=== PATIENT | female | born 1985 | race Caucasian/White ===

== ENCOUNTER 2019-03-10 13:07 | Emergency (ER) | payer SELFPAY ==
[~2019-03-10] VITALS: Ht 152.4 cm; Wt 61.4 kg
[2019-03-10 13:24] VITALS: BP 115/73; PULSE 70; RESP 18; Ht 152.4 cm; Wt 61.4 kg
[2019-03-10] MEDS ORDERED: KETOROLAC 30 MG INJ IM STA (14:20)
[2019-03-10] MEDS ORDERED: CEPH-443 PO (15:33)
[2019-03-10] MEDS ORDERED: IBUP-1542 PO (15:33)
--- NOTE | 2019-03-10 18:18 | ERD ---
ER Documentation Chief Complaint Chief Complaint left ankle pain s/p fall x6 days HPI 34-year-old woman complaining of left lateral ankle pain and redness after striking it against a ladder at home about a week ago. She has been able to ambulate without difficulty although she has exquisite pain when she touches the left lateral ankle. She denies inversion injury, no fevers or chills, no chest pain or shortness of breath, no domestic violence. ROS All systems reviewed and are negative except as per history of present illness. Medications Home Meds Active Scripts Cephalexin* (Keflex*) 500 Mg Capsule, 500 MG PO QID for 5 Days, CAP Prov:SHANNON WATERMAN MD 03/10/19 Ibuprofen* (Motrin*) 600 Mg Tab, 600 MG PO Q8 PRN for PAIN AND/OR INFLAMMATION, #30 TAB Prov:SHANNON WATERMAN MD 03/10/19 Allergies Allergies: Coded Allergies: No Known Allergy (Unverified , 03/10/19) PMhx/Soc Medical and Surgical Hx: pt denies Medical Hx, pt denies Surgical Hx History of Surgery: No Anesthesia Reaction: No Hx Neurological Disorder: No Hx Respiratory Disorders: No Hx Cardiac Disorders: No Hx Psychiatric Problems: No Hx Miscellaneous Medical Probl: No Hx Alcohol Use: No Hx Substance Use: No Hx Tobacco Use: No Smoking Status: Never smoker Physical Exam Vitals Vital Signs Date Temp Pulse Resp B/P (MAP) Pulse Ox O2 O2 Flow FiO2 Time Delivery Rate 03/10/19 97.9 70 18 115/73 99 13:24 (87) Physical Exam Const: No acute distress Cardio: Regular rate and rhythm, no murmurs Skin: No petechiae or rashes, mild soft tissue erythema to the left lateral ankle, tender to touch, no bony deformity Back: No midline or flank tenderness Ext: No cyanosis, or edema, calves symmetrical Neur: Awake and alert x3, no focal deficits or facial asymmetry Psych: Normal Mood and Affect Results 24 hrs Laboratory Tests Test 03/10/19 14:33 POC Beta HCG, Qualitative NEGATIVE Current Medications Medications Dose Sig/Jayme Start Time Status Last (Trade) Ordered Route PRN Stop Time Admin Dose Reason Admin Ketorolac 30 mg ONCE STAT 03/10/19 DC 03/10/19 Tromethamine IM 14:20 03/10/19 14:40 (Toradol) 14:21 Procedures/MDM Administered Toradol 30 mg IM x1. X-ray left ankle 3V Interpreted by me: Bones: No fracture Joints: No dislocation Foreign Body: None I suspect soft tissue contusion to the left lateral ankle although mild cellulitis is also a concern, I will discharge her with a prescription for ibuprofen and cephalexin and recommended she follow-up with her PMD for continued outpatient management. Differential diagnoses considered, included but not limited to acute coronary syndrome, pulmonary embolism, aortic dissection, abdominal aortic aneurysm, sepsis, stroke, meningitis, encephalitis, pneumonia, appendicitis, cholecystitis, bowel obstruction, pyelonephritis, nephrolithiasis, cystitis, as well as metabolic, hematologic, and electrolyte abnormalities. As well as abscess, cellulitis, fractures, and dislocations. Patient feels much better at this time, and vital signs are normal, symptoms have improved. I did give strict instructions to return to the ED if symptoms continue or worsen, patient will otherwise follow-up with primary care physician. Patient understood instructions and agreed to plan. Disclaimer: Inadvertent spelling and grammatical errors are likely due to EHR/dictation software use and do not reflect on the overall quality of patient care. Also, please note that the electronic time recorded on this note does not necessarily reflect the actual time of the patient encounter. Departure Diagnosis: Primary Impression: Contusion, ankle Encounter type: initial encounter Laterality: left Qualified Codes: S90.02XA - Contusion of left ankle, initial encounter Ruled Out: Ankle injury Condition: Good Patient Instructions: Becki, Foot SHANNON WATERMAN MD Mar 10, 2019 18:18
== END 2019-03-10 15:39 | disposition home or self-care (01) ==
LOC: FTE 13:07
DX: S90.02XA Contusion of left ankle, initial encounter (principal); W01.198A Fall on same level from slipping, tripping and stumbling with subsequent striking against other object, initial encounter; Y92.009 Unspecified place in unspecified non-institutional (private) residence as the place of occurrence of the external cause
CPT/HCPCS: 73610; 81025; 96372; 99284; J1885